=== PATIENT | male | born 1940 | race Caucasian/White ===

== ENCOUNTER 2016-06-29 16:49 | Outpatient (CLI) | payer MEDICARE ==
--- NOTE | 2016-06-29 18:19 | DIAGNOSTIC IMAGING REPORT ---
PROCEDURE: XR CHEST 2 VIEW INDICATION: WHEEZING TECHNIQUE: PA and lateral views. COMPARISON: None. FINDINGS: There is a residual infiltrate in the lingula. The right lung is clear. Heart and mediastinum are normal. Thorax is normal. IMPRESSION: 1. Lingular infiltrate.
== END 2016-06-29 23:00 ==
LOC: XR SRH 16:49
DX: R06.2 Wheezing (principal)

== ENCOUNTER 2016-07-22 09:18 | Emergency (ER) | payer OTHER ==
--- NOTE | 2016-07-22 11:06 | DIAGNOSTIC IMAGING REPORT ---
PROCEDURE: XR CHEST 2 VIEW INDICATION: FEVER/CHILLS TECHNIQUE: PA and lateral views. COMPARISON: Compared to chest x-ray on 06/29/2016. FINDINGS: Allowing for overlying wires and electrodes, there is a prominent fat pad at the left cardiophrenic angle. Lung are clear. Heart and mediastinum are normal. Thorax is normal. IMPRESSION: 1. Negative chest.
--- NOTE | 2016-07-22 11:15 | ED NURSING NOTES ---
Clinical Report - Nurses [facility] [address] [place] [address] 07/22/2016 9:20 Patient: ELISSA DOYLE TRIAGE Triage time 09:29. Acuity: LEVEL 3. Chief Complaint: FEVER, CHILLS, MUSCLE ACHES and INSOMNIA (and joint pain). Alert. --09:40 Stephanie Huertas R.N. 09:29 07/22/16. BP: 163/65. HR: 95. RR: 22. O2 saturation: 96%. Temp: 98.7 F. Pain level now: 08/29. --09:40 Stephanie Huertas R.N. Weight: 100.6 kg stated. Height/Length: 71 inches Per Patient. BMI: 30.9. --09:33 Stephanie Huertas R.N. Medications Lisinopril Oral 40 mg, daily. --09:35 Stephanie Huertas R.N. Verapamil HCl ER Oral (Tablet Extended Release 180 mg) 1 tablet, daily. --09:35 Stephanie Huertas R.N. Allergies No Known Drug Allergy. --09:34 Stephanie Huertas R.N. History Arrived by private vehicle. Historian: family. Accompanied by (brother in law). Primary physician (Hang). Onset. (5 days ago). SOCIAL HX: Never smoker. Alcohol use; consumes one liquor drink. (seldom). No drug use. Infectious disease exposure. (visited [facility] 10 months ago, has been ill off and on ever since). NUTRITIONAL RISK ASSESSMENT: The nutritional risk assessment revealed no deficiencies. FUNCTIONAL ASSESSMENT: Functional assessment: no impairments noted. --09:40 Stephanie Huertas R.N. PROBLEMS: Mild renal disease. Pneumonia. --09:32 Stephanie Huertas R.N. 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 --09:33 Stephanie Huertas R.N. ADDITIONAL SURGERIES: Adenoidectomy. Bronchitis. Influenza. Knee Surgery. Tonsillectomy. --09:33 Stephanie Huertas R.N. Interventions ID band on patient. To room. --09:40 Stephanie Huertas R.N. PHYSICAL ASSESSMENT 09:41 07/22/16. Patient gowned. GENERAL / NEURO / PSYCH: Alert. Oriented X 4. Appears anxious. --09:41 Stephanie Huertas R.N. 09:42 07/22/16. RESPIRATORY: Nonproductive cough. --09:42 Stephanie Huertas R.N. NURSING PROGRESS NOTES 09:41 07/22/16. Patient identifiers checked. Call light placed in reach. Bed placed in lowest position. Patient ready for evaluation- chart flagged. --09:41 Stephanie Huertas R.N. 10:08 07/22/2016 Site #1 started via IV in the right forearm with an 20g angiocath, with aseptic technique and good blood return; one attempt. Blood drawn: rainbow set. Labeled in the presence of the patient and sent to the lab. Saline lock flushed with 10 mL saline. --10:08 Stephanie Huertas R.N. <<STRICKEN ENTRY-- Patient transported to radiology by stretcher with tech. ([id number]). --10:18 Stephanie Huertas R.N. --END STRIKE>> Correction --10:19 Stephanie Huertas R.N. 10:27 07/22/2016 Started bag #1 1000 mL IV Fluids IV NS (Saline); at 1000 mL/hr over 30 minute(s) via site #1 via IV pump. Confirmed 5 rights. (for 500 mls bolus). --10:27 Stephanie Huertas R.N. 10:27 07/22/16. Patient returned from radiology by stretcher with tech. --10:27 Stephanie Huertas R.N. 10:28 07/22/16. ( Pt instructed to give us a urine sample, urinal at bedside). --10:28 Stephanie Huertas R.N. 10:47 07/22/16. Patient ID band checked for patient name and birthdate: patient confirmed. Clean catch urine collected with return of yellow-colored clear urine; sample sent to lab. Specimen labeled in the presence of the patient. --10:47 Stephanie Huertas R.N. 10:58 07/22/2016 IV Fluids IV NS via IV site #1 Rate Changed: bag #1 decreased to 21 mL/hr via IV pump. IV patency established. IV site checked: no pain, redness, or swelling. IV flushed thoroughly. Confirmed 5 Rights. --10:58 Stephanie Huertas R.N. 11:40 07/22/2016 IV Fluids IV NS Discontinued: bag #1 discontinued upon discharge. Total amount infused: 520 mL. IV patency established. IV site checked: no pain, redness, or swelling. IV flushed thoroughly. --12:26 Stephanie Huertas R.N. 11:44 07/22/2016 Site #1 removed upon discharge. Catheter intact. Bandage applied. --12:27 Stephanie Huertas R.N. 11:45 07/22/2016 Azithromycin PO 500 mg given. Allergies verified and confirmed 5 rights. --11:50 Stephanie Huertas R.N. DISPOSITION / DISCHARGE Departure time: 1145. No learning barriers present. Discharge instructions provided and reviewed with the patient. Reviewed medication(s) information. Prescription(s) given to the patient. Reviewed referral to family practice for followup. Verbalized understanding. Written instructions provided. The patient was discharged home and accompanied by template fitter. He left the Emergency Department ambulatory and via private vehicle. --11:51 Stephanie Huertas R.N. 11:44 07/22/16. BP: 151/69. HR: 73. RR: 20. O2 saturation: 93%. Temp: 98.5 F. Pain level now: 0/10. --11:51 Stephanie Huertas R.N. Locked/Released at 07/22/2016 12:28 by Stephanie Huertas R.N.
--- NOTE | 2016-07-22 11:15 | ED ORDER SUMMARY ---
..... Patient: ELISSA DOYLE OrderSheet [facility] VisitID: [id number] [place] [address] 75y, M Registration Date/Time: 07/22/2016 ORDER SHEET Weight: 100.6 kg (stated) Allergies: No Known Drug Allergy GENERAL ORDERS: Chest 2V Urgent (09:48 07/22/2016 Anahi Valle) (Ack 9:51 MUSHTAQoerner) (10:18 LSullivan R.N.) Test Pilot (Continuous) (Respiratory Distress) (09:49 07/22/2016 Anahi Valle) (Ack 9:51 MUSHTAQoerner) (10:04 KHoerner) CBC w Diff Urgent (09:50 07/22/2016 Anahi Valle) (Ack 9:51 Geni) (10:07 LSullivan R.N.) CMP Urgent (09:50 07/22/2016 Anahi Valle) (Ack 9:51 MUSHTAQoerner) (10:07 LSullivan R.N.) UA-Culture if indicated Urgent (09:50 07/22/2016 Anahi Valle) (Ack 9:51 MUSHTAQoerner) (10:47 LSullivan R.N.) Pulse oximeter (09:50 07/22/2016 Anahi Valle) (Ack 9:51 Rubensrner) (10:04 KHoerner) MEDICATION ORDERS: Azithromycin PO 500 mg (NOW) (11:13 07/22/2016 Anahi Valle) (11:50 LSullivan R.N.) IV FLUIDS: IV NS : initial bolus 500 mL (1000 mL/hr), then none - for X1 (NOW) (09:48 07/22/2016 Anahi Valle) (10:27 LSullivan R.N.) ORDER SHEET NOTES: [Electronically signed by Aaron Valentine Dr. (11:47 07/22/2016)] [Electronically signed by Stephanie Huertas R.N. (12:28 07/22/2016)] [Electronically locked/signed by Stephanie Huertas R.N. (12:28 07/22/2016)]
--- NOTE | 2016-07-22 11:15 | ED ORDER SUMMARY ---
..... Patient: ELISSA DOYLE OrderSheet [facility] VisitID: [id number] [place] [address] 75y, M Registration Date/Time: 07/22/2016 ORDER SHEET Weight: 100.6 kg (stated) Allergies: No Known Drug Allergy GENERAL ORDERS: Chest 2V Urgent (09:48 07/22/2016 Anahi Valle) (Ack 9:51 MUSHTAQoerner) (10:18 LSullivan R.N.) Drapery Maker (Continuous) (Respiratory Distress) (09:49 07/22/2016 Anahi Valle) (Ack 9:51 MUSHTAQoerner) (10:04 KHoerner) CBC w Diff Urgent (09:50 07/22/2016 Anahi Valle) (Ack 9:51 Geni) (10:07 LSullivan R.N.) CMP Urgent (09:50 07/22/2016 Anahi Vlale) (Ack 9:51 MUSHTAQoerner) (10:07 LSullivan R.N.) UA-Culture if indicated Urgent (09:50 07/22/2016 Anahi Valle) (Ack 9:51 MUSHTAQoerner) (10:47 LSullivan R.N.) Pulse oximeter (09:50 07/22/2016 Anahi Valle) (Ack 9:51 Rubensrner) (10:04 KHoerner) MEDICATION ORDERS: Azithromycin PO 500 mg (NOW) (11:13 07/22/2016 Anahi Valle) (11:50 LSullivan R.N.) IV FLUIDS: IV NS : initial bolus 500 mL (1000 mL/hr), then none - for X1 (NOW) (09:48 07/22/2016 Anahi Valle) (10:27 LSullivan R.N.) ORDER SHEET NOTES: [Electronically signed by Aaron Valentine Dr. (11:47 07/22/2016)] [Electronically signed by Stephanie Huertas R.N. (12:28 07/22/2016)] [Electronically locked/signed by Stephanie Huertas R.N. (12:28 07/22/2016)]
--- NOTE | 2016-07-22 11:15 | ED NURSING NOTES ---
Clinical Report - Nurses [facility] [address] [place] [address] 07/22/2016 9:20 Patient: ELISSA DOYLE TRIAGE Triage time 09:29. Acuity: LEVEL 3. Chief Complaint: FEVER, CHILLS, MUSCLE ACHES and INSOMNIA (and joint pain). Alert. --09:40 Stephanie Huertas R.N. 09:29 07/22/16. BP: 163/65. HR: 95. RR: 22. O2 saturation: 96%. Temp: 98.7 F. Pain level now: 08/29. --09:40 Stephanie Huertas R.N. Weight: 100.6 kg stated. Height/Length: 71 inches Per Patient. BMI: 30.9. --09:33 Stephanie Huertas R.N. Medications Lisinopril Oral 40 mg, daily. --09:35 Stephanie Huertas R.N. Verapamil HCl ER Oral (Tablet Extended Release 180 mg) 1 tablet, daily. --09:35 Stephanie Huertas R.N. Allergies No Known Drug Allergy. --09:34 Stephanie Huertas R.N. History Arrived by private vehicle. Historian: family. Accompanied by (brother in law). Primary physician (Hang). Onset. (5 days ago). SOCIAL HX: Never smoker. Alcohol use; consumes one liquor drink. (seldom). No drug use. Infectious disease exposure. (visited [facility] 10 months ago, has been ill off and on ever since). NUTRITIONAL RISK ASSESSMENT: The nutritional risk assessment revealed no deficiencies. FUNCTIONAL ASSESSMENT: Functional assessment: no impairments noted. --09:40 Stephanie Huertas R.N. PROBLEMS: Mild renal disease. Pneumonia. --09:32 Stephanie Huertas R.N. 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 --09:33 Stephanie Huertas R.N. ADDITIONAL SURGERIES: Adenoidectomy. Bronchitis. Influenza. Knee Surgery. Tonsillectomy. --09:33 Stephanie Huertas R.N. Interventions ID band on patient. To room. --09:40 Stephanie Huertas R.N. PHYSICAL ASSESSMENT 09:41 07/22/16. Patient gowned. GENERAL / NEURO / PSYCH: Alert. Oriented X 4. Appears anxious. --09:41 Stephanie Huertas R.N. 09:42 07/22/16. RESPIRATORY: Nonproductive cough. --09:42 Stephanie Huertas R.N. NURSING PROGRESS NOTES 09:41 07/22/16. Patient identifiers checked. Call light placed in reach. Bed placed in lowest position. Patient ready for evaluation- chart flagged. --09:41 Stephanie Huertas R.N. 10:08 07/22/2016 Site #1 started via IV in the right forearm with an 20g angiocath, with aseptic technique and good blood return; one attempt. Blood drawn: rainbow set. Labeled in the presence of the patient and sent to the lab. Saline lock flushed with 10 mL saline. --10:08 Stephanie Huertas R.N. <<STRICKEN ENTRY-- Patient transported to radiology by stretcher with tech. ([id number]). --10:18 Stephanie Huertas R.N. --END STRIKE>> Correction --10:19 Stephanie Huertas R.N. 10:27 07/22/2016 Started bag #1 1000 mL IV Fluids IV NS (Saline); at 1000 mL/hr over 30 minute(s) via site #1 via IV pump. Confirmed 5 rights. (for 500 mls bolus). --10:27 Stephanie Huertas R.N. 10:27 07/22/16. Patient returned from radiology by stretcher with tech. --10:27 Stephanie Huertas R.N. 10:28 07/22/16. ( Pt instructed to give us a urine sample, urinal at bedside). --10:28 Stephanie Huertas R.N. 10:47 07/22/16. Patient ID band checked for patient name and birthdate: patient confirmed. Clean catch urine collected with return of yellow-colored clear urine; sample sent to lab. Specimen labeled in the presence of the patient. --10:47 Stephanie Huertas R.N. 10:58 07/22/2016 IV Fluids IV NS via IV site #1 Rate Changed: bag #1 decreased to 21 mL/hr via IV pump. IV patency established. IV site checked: no pain, redness, or swelling. IV flushed thoroughly. Confirmed 5 Rights. --10:58 Stephanie Huertas R.N. 11:40 07/22/2016 IV Fluids IV NS Discontinued: bag #1 discontinued upon discharge. Total amount infused: 520 mL. IV patency established. IV site checked: no pain, redness, or swelling. IV flushed thoroughly. --12:26 Stephanie Huertas R.N. 11:44 07/22/2016 Site #1 removed upon discharge. Catheter intact. Bandage applied. --12:27 Stephanie Huertas R.N. 11:45 07/22/2016 Azithromycin PO 500 mg given. Allergies verified and confirmed 5 rights. --11:50 Stephanie Huertas R.N. DISPOSITION / DISCHARGE Departure time: 1145. No learning barriers present. Discharge instructions provided and reviewed with the patient. Reviewed medication(s) information. Prescription(s) given to the patient. Reviewed referral to family practice for followup. Verbalized understanding. Written instructions provided. The patient was discharged home and accompanied by rig supervisor. He left the Emergency Department ambulatory and via private vehicle. --11:51 Stephanie Huertas R.N. 11:44 07/22/16. BP: 151/69. HR: 73. RR: 20. O2 saturation: 93%. Temp: 98.5 F. Pain level now: 0/10. --11:51 Stephanie Huertas R.N. Locked/Released at 07/22/2016 12:28 by Stephanie Huertas R.N.
--- NOTE | 2016-07-22 11:15 | ED CLINICAL REPORT ---
Clinical Report - Physicians/Mid Levels [facility] [address] [place] [address] 07/22/2016 9:20 Patient: ELISSA DOYLE Time Seen: 0940. Arrived- By private vehicle. Historian- patient. HISTORY OF PRESENT ILLNESS Chief Complaint: COUGH. This started Off and on for about a month and is still present (staying the same). It was gradual in onset and has been constant but is not gone now. The illness is described as moderate. The patient has had sputum production, a cough, nasal congestion, fever and chills. He has had muscle aches. No difficulty breathing, chest pain, sore throat or hoarseness. Additional history - The patient has had contact with a sick individual. He has had recent travel- ([employer] 10 months ago). (no night sweats, weight loss, or known TB exposure.). Similar symptoms previously: None. Recent medical care: The patient was seen recently in a clinic (prescribed what he describes as levaquin. Finished 2 days ago.). REVIEW OF SYSTEMS No headache, eye discomfort or skin rash. All systems otherwise negative, except as recorded above. PAST HISTORY See nurses notes. SOCIAL HISTORY Never smoker. No alcohol use or drug use. Is a local resident. ADDITIONAL NOTES The nursing notes have been reviewed. PHYSICAL EXAM Vital Signs: 07/22/2016 09:29 BP: 163/65. HR: 95. RR: 22. O2 saturation: 96%. Temp: 98.7 F. Pain level now: 5/10. Blood pressure normal. Oxygen saturation normal. Appearance: Alert. No acute distress. Eyes: Pupils equal, round and reactive to light. Eyes normal inspection. ENT: Ears normal. Nose normal. Pharynx normal. Neck: Normal inspection. Neck supple. CVS: Normal heart rate and rhythm. Heart sounds normal. Pulses normal. Respiratory: No respiratory distress. Breath sounds normal. No rales, rhonchi, wheezes or stridor. Abdomen: Soft and nontender. No organomegaly. Skin: Skin warm and dry. Normal skin color. No rash. Normal skin turgor. Extremities: Extremities exhibit normal ROM. No lower extremity edema. LABS, X-RAYS, AND EKG Chest X-ray: (PROCEDURE: XR CHEST 2 VIEW INDICATION: FEVER/CHILLS TECHNIQUE: PA and lateral views. COMPARISON: Compared to chest x-ray on 06/29/2016. FINDINGS: Allowing for overlying wires and electrodes, there is a prominent fat pad at the left cardiophrenic angle. Lung are clear. Heart and mediastinum are normal. Thorax is normal. IMPRESSION: 1. Negative chest.). Laboratory Tests: UA-Culture if indicated: (VICKI: 07/22/2016 10:45) ( Mscvd 07/22/2016 11:01) Final results Test Result Flag Units (Reference) URINE COLOR YELLOW URINE APPEARANCE CLEAR URINE GLUCOSE NEGATIVE (NEGATIVE) URINE BILIRUBIN NEGATIVE (NEGATIVE) URINE KETONE TRACE (NEGATIVE) URINE SPECIFIC GRAVITY 1.025 (1.010-1.030) URINE PH 5.5 (5.0-8.0) URINE PROTEIN TRACE (NEGATIVE) URINE UROBILINOGEN 0.2 EU/dL (0.2-1.0) URINE NITRITE NEGATIVE (NEGATIVE) URINE BLOOD NEGATIVE (NEGATIVE) URINE LEUK ESTERASE NEGATIVE (NEGATIVE) URINE RBC 0-1 rbc/hpf (0-1) 1+ MUCOUS URINE WBC 0-1 wbc/hpf (0-1) URINE EPITHELIAL CELLS 1-3 EPI/hpf (0-5) URINE BACTERIA FEW (1+) (NONE SEEN) URINE COMMENT CULT NOT INDICATED URINE CULTURES ARE SET-UP BASED ON THE FOLLOWING CRITERIA:POSITIVE NITRITEPOSITIVE LEUKOCYTE ESTERASEGREATER THAN 10 WHITE BLOOD CELLSMODERATE (2+) OR GREATER BACTERIA CBC w Diff: (VICKI: 07/22/2016 10:05) ( Mscvd 07/22/2016 10:20) Final results Test Result Flag Units (Reference) WHITE BLOOD COUNT 3.9 L K/uL (4.5-11.5) RED BLOOD COUNT 4.57 M/uL (4.50-5.90) HEMOGLOBIN 13.9 gm/dL (13.5-17.5) HEMATOCRIT 41.7 % (41.0-53.0) MEAN CELL VOLUME 91 fL (80-100) MEAN CORPUSCULAR HGB 30 pg (26-34) MEAN CORPUSCULAR HGB CONC 33 g/dL (31-37) RED CELL DISTRIBUTION WIDTH 14.7 % (11.6-14.8) PLATELET COUNT 154 K/uL (150-400) NEUTROPHIL % 48.3 L % (50-75) LYMPH % 33.5 % (25-40) MONO % 13.8 % (3-14) EOSINOPHIL % 3.8 % (0-4) BASOPHIL % 0.6 % (0-2) CMP: (VICKI: 07/22/2016 10:05) ( MsgRcvd 07/22/2016 10:27) Final results Test Result Flag Units (Reference) GLUCOSE 118 H mg/dL (70-110) BUN 17 mg/dL (7-18) CREATININE 1.4 H mg/dL (0.6-1.3) Estimated GFR 52.65 mL/min Estimated GFR- >60 mL/min Note: Persistent reduction over 3 months in eGFR<60 mL/min/1.73 m2 defines CKD. Patients with eGFR values>=60 mL/min/1.73 m2 may also have CKD if evidence ofpersistent proteinuria. Additional information may be foundat www.kidney.org. SODIUM 142 mmol/L (136-145) POTASSIUM 3.9 mmol/L (3.5-5.1) CHLORIDE 105 mmol/L (98-107) CARBON DIOXIDE 26 mmol/L (21-32) CALCIUM 8.4 L mg/dL (8.5-10.1) TOTAL PROTEIN 7.1 g/dL (6.4-8.2) ALBUMIN 3.4 g/dL (3.3-5.0) BILIRUBIN, TOTAL 1.0 mg/dL (0.0-1.0) ALKALINE PHOSPHATASE 84 U/L (46-116) AST (SGOT) 30 U/L (15-37) ALT (SGPT) 30 U/L (12-78) . 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 Patient also reporting generalized body aches. Patient recently treated for what he describes as a pneumonia with Levaquin. Patient had finished his antibiotics approximately 2 days ago. Patient is resting in bed and in no acute distress. Lungs are clear in examination. No other signs of infection. Patient with otherwise unremarkable vital signs. Patient is agreeable to the treatment and plan. We'll order chest x-ray as well as a urinalysis and blood work for evaluation of the patient's fevers and chills. Patient's workup was remarkable for clear chest x-ray which is unchanged from prior as well as no signs of urinary tract infection. Electrolytes are unremarkable. White blood cell count is normal. The cause of the patient's unremarkable chest x-ray as well as laboratory studies, do not feel patient needs to be admitted to the hospital or require further emergency department workup/evaluation. Different trial of antibiotics provided as the benefits outweigh the risks at this time. Patient likely with bronchitis and because of the time course, treatment would be recommended for and Antibiotics. I discussion patient in regards to his workup here in the emergency department as well as home care, follow-up, and return precautions. All questions have been answered. The patient expressed understanding of these instructions and was agreeable to them. Disposition: Discharged. Condition: good. CLINICAL IMPRESSION Acute bacterial bronchitis. INSTRUCTIONS Warnings: GENERAL WARNINGS: Return or contact your physician immediately if your condition worsens or changes unexpectedly, if not improving as expected, or if other problems arise. Specifically return if pain, vomiting, bleeding, breathing difficulty or fever. Your Current Medications: CONTINUE TAKING THE FOLLOWING MEDICATIONS: Lisinopril Oral : 40 mg daily. Verapamil HCl ER Oral : Tablet Extended Release 180 mg, 1 tablet daily. Prescription Medications: Zithromax Z-Helder: Take according to package instructions. No refills. Substitution is permissible. Phenergan w/ Codeine 10mg / 6.25mg per 5 mL: take 1 teaspoon every 6 hours as needed for pain or cough. Dispense sixty (60) mL. No refill. Substitution is permissible. Follow-up: Return to the emergency department as needed. Follow up with your doctor in three days. Reason for referral: recheck today's concerns. Summary of care provided to patient via paper. Screening today revealed the patient's blood pressure to be in the normal range. The patient should follow up with a primary care provider for blood pressure management. Understanding of the discharge instructions verbalized by patient. (Electronically signed by Aaron Valentine Dr. 07/22/2016 11:47)
--- NOTE | 2016-07-22 12:28 | ED DISCHARGE INSTRUCTIONS ---
Patient: ELISSA DOYLE General Instructions [facility] VisitID: [id number] [place] [address] 75y, M Registration Date/Time: 07/22/2016 Acute bacterial bronchitis. INSTRUCTIONS Warnings: GENERAL WARNINGS: Return or contact your physician immediately if your condition worsens or changes unexpectedly, if not improving as expected, or if other problems arise. Specifically return if pain, vomiting, bleeding, breathing difficulty or fever. Your Current Medications: CONTINUE TAKING THE FOLLOWING MEDICATIONS: Lisinopril Oral : 40 mg daily. Verapamil HCl ER Oral : Tablet Extended Release 180 mg, 1 tablet daily. Prescription Medications: Zithromax Z-Helder: Take according to package instructions. No refills. Substitution is permissible. Phenergan w/ Codeine 10mg / 6.25mg per 5 mL: take 1 teaspoon every 6 hours as needed for pain or cough. Dispense sixty (60) mL. No refill. Substitution is permissible. Follow-up: Return to the emergency department as needed. Follow up with your doctor in three days. Reason for referral: recheck today's concerns. Summary of care provided to patient via paper. Screening today revealed the patient's blood pressure to be in the normal range. The patient should follow up with a primary care provider for blood pressure management. Understanding of the discharge instructions verbalized by patient. ADDITIONAL INFORMATION Bronchitis (Adult: Abx Tx) BRONCHITIS is an infection of the air passages (bronchial tubes). It often occurs during the common cold. Symptoms include cough with mucus (phlegm) and low-grade fever. Bronchitis usually lasts 7-14 days. Mild cases can be treated with simple home remedies. More severe infection is treated with an antibiotic. Home Care: If symptoms are severe, rest at home for the first 2-3 days. When you resume activity, don't let yourself get too tired. Do not smoke. Avoid being exposed to the smoke of others. You may use acetaminophen (Tylenol) or ibuprofen (Motrin, Advil) to control fever or pain, unless another medicine was prescribed for this. [NOTE: If you have chronic liver or kidney disease or ever had a stomach ulcer or GI bleeding, talk with your doctor before using these medicines.] Your appetite may be poor, so a light diet is fine. Avoid dehydration by drinking 6-8 glasses of fluids per day (water, soft, drinks, juices, tea, soup, etc.). Extra fluids will help loosen secretions in the lungs. Cott-snb-dpicdcd cough medicines that containdextromethorphan(such as Robitussin DM) and decongestants (Actifed or Sudafed) may help relieve cough and congestion. [NOTE: Do not use decongestants if you have high blood pressure.] Finish all antibiotic medicine, even if you are feeling better after only a few days. Follow Up with your doctor or as directed if you dont start to feel better after three days. [NOTE: If you are age 65 or older, or if you have chronic asthma or COPD, we recommend a PNEUMOCOCCAL VACCINATION every five years and a yearly INFLUENZAVACCINATION (FLU-SHOT) every . Ask your doctor about this. If you had an X-ray, a radiologist will review it. You will be notified of any new findings that may affect your care.] Get Prompt Medical Attention if any of the following occur: Fever over 100.4F (38.0C) for more than three days Trouble breathing, wheezing or pain with breathing Coughing up blood or increased amounts of colored sputum Weakness, drowsiness, headache, facial pain, ear pain or a stiff neck You have been given the following additional information: Bronchitis, Antiobiotic Treatment (Adult) (Electronically signed by Aaron Valentine Dr. 07/22/2016 11:47)
--- NOTE | 2016-07-22 12:29 | ED MED RECONCILIATION SUMMARY ---
Patient: ELISSA DOYLE Medication Reconciliation Report [facility] VisitID: [id number] [address] [place] [address] 75y, M Registration Date/Time: 07/22/2016 Weight: 100.6 kg Height/Length: 71 in. BMI: 30.9 ALLERGIES: No Known Drug Allergy The patient's Home Medications are listed below: CONTINUE TAKING THE FOLLOWING MEDICATIONS: Lisinopril Oral 40 mg, daily Verapamil HCl ER Oral (180 mg) 1 tablet, daily The source(s) of the original Home Medication information: Not obtained. The following Medications were given to the patient in the Emergency Department: IV NS IV Fluids bolus 0, then 1000 mL/hr, administered: 07/22/2016 10:27:00 AM Azithromycin [PO] PO 500 mg, administered: 07/22/2016 11:45:00 AM The following Medications were prescribed to the patient: Zithromax Z-Helder: Take according to package instructions. No refills. Substitution is permissible. -- Aaron Valentine Dr. Phenergan w/ Codeine 10mg / 6.25mg per 5 mL: take 1 teaspoon every 6 hours as needed for pain or cough. Dispense sixty (60) mL. No refill. Substitution is permissible. -- Aaron Valentine Dr.
--- NOTE | 2016-07-22 12:29 | ED MAR SUMMARY ---
..... Medication Administration Record [facility] [address] [place] [address] Patient: ELISSA DOYLE Visit ID: [id number] 75y, M Weight: 100.6 kg Height/Length: 71 in BMI: 30.9 ALLERGIES: No Known Drug Allergy Start 10:27 07/22/2016 Stephanie Huertas R.N., Stop 11:40 07/22/2016 Stephanie Huertas R.N. Medication Administered: IV NS (SALINE), Dose: IV Fluids over 30 minute(s), Rate: 1000 mL/hr, Dispensed: 1000 mL bag, Site: #1 right forearm. Medication Ordered: IV NS : initial bolus 500 mL (1000 mL/hr), then none - for X1 (NOW). Given 11:45 07/22/2016 Stephanie Huertas R.N. Medication Administered: AZITHROMYCIN [PO], Dose: 500 mg PO. Medication Ordered: Azithromycin PO 500 mg (NOW).
--- NOTE | 2016-07-22 12:29 | ED MED RECONCILIATION SUMMARY ---
Patient: ELISSA DOYLE Medication Reconciliation Report [facility] VisitID: [id number] [address] [place] [address] 75y, M Registration Date/Time: 07/22/2016 Weight: 100.6 kg Height/Length: 71 in. BMI: 30.9 ALLERGIES: No Known Drug Allergy The patient's Home Medications are listed below: CONTINUE TAKING THE FOLLOWING MEDICATIONS: Lisinopril Oral 40 mg, daily Verapamil HCl ER Oral (180 mg) 1 tablet, daily The source(s) of the original Home Medication information: Not obtained. The following Medications were given to the patient in the Emergency Department: IV NS IV Fluids bolus 0, then 1000 mL/hr, administered: 07/22/2016 10:27:00 AM Azithromycin [PO] PO 500 mg, administered: 07/22/2016 11:45:00 AM The following Medications were prescribed to the patient: Zithromax Z-Helder: Take according to package instructions. No refills. Substitution is permissible. -- Aaron Valentine Dr. Phenergan w/ Codeine 10mg / 6.25mg per 5 mL: take 1 teaspoon every 6 hours as needed for pain or cough. Dispense sixty (60) mL. No refill. Substitution is permissible. -- Aaron Valentine Dr.
--- NOTE | 2016-07-22 12:29 | ED MAR SUMMARY ---
..... Medication Administration Record [facility] [address] [place] [address] Patient: ELISSA DOYLE Visit ID: [id number] 75y, M Weight: 100.6 kg Height/Length: 71 in BMI: 30.9 ALLERGIES: No Known Drug Allergy Start 10:27 07/22/2016 Stephanie Huertas R.N., Stop 11:40 07/22/2016 Stephanie Huertas R.N. Medication Administered: IV NS (SALINE), Dose: IV Fluids over 30 minute(s), Rate: 1000 mL/hr, Dispensed: 1000 mL bag, Site: #1 right forearm. Medication Ordered: IV NS : initial bolus 500 mL (1000 mL/hr), then none - for X1 (NOW). Given 11:45 07/22/2016 Stephanie Huertas R.N. Medication Administered: AZITHROMYCIN [PO], Dose: 500 mg PO. Medication Ordered: Azithromycin PO 500 mg (NOW).
== END 2016-07-22 11:44 | disposition home or self-care (01) ==
LOC: ED SRH 09:18
DX: J20.8 Acute bronchitis due to other specified organisms (principal)
CPT/HCPCS: 90004; 90100; 95059